=== PATIENT | female | born 1945 | race Caucasian/White ===

== ENCOUNTER 2018-12-30 06:55 | Outpatient (CLI) | payer MEDICARE ==
[~2018-12-30] VITALS: Ht 195.6 cm; Wt 112.0 kg
[2018-12-30 07:35] LABS: TOTAL HEMOGLOBIN 16.2 G/dl (12.0-16.0)
[2018-12-30] MEDS ORDERED: albuterol 2.5 MG/3 ML nebule NEB ONE (08:05)
== END 2018-12-30 23:59 | disposition home or self-care (01) ==
LOC: RT 06:55
PROVIDERS: ATTEND Internal Medicine Cardiovascular Disease
DX: J98.4 Other disorders of lung (principal); G47.33 Obstructive sleep apnea (adult) (pediatric); I11.0 Hypertensive heart disease with heart failure; I50.9 Heart failure, unspecified; J45.909 Unspecified asthma, uncomplicated; E11.9 Type 2 diabetes mellitus without complications; Z79.899 Other long term (current) drug therapy; Z87.2 Personal history of diseases of the skin and subcutaneous tissue; Z90.10 Acquired absence of unspecified breast and nipple; Z90.710 Acquired absence of both cervix and uterus
CPT/HCPCS: 85018; 94060; 94727; 94729; 94760